=== PATIENT | male | born 1950 | race Caucasian/White ===

== ENCOUNTER 2017-07-02 21:03 | Emergency (ER) | payer MEDICARE, OTHER ==
[2017-07-02 21:13] VITALS: BP 139/80
[2017-07-02] MEDS ORDERED: Albuterol/Ipratropium NEB.SOL* Albuterol 2.5 MG/Ipratropium 0.5 MG 3 ML INH ONE (21:13)
--- NOTE | 2017-07-02 21:35 | UC ---
Respiratory Complaint HPI - HPI Summary HPI Summary: Uri sx began 5 days ago seen pcp yesterday tessalon and tamiflu rx, --is getting no relief- - History of Current Complaint Chief Complaint: UCRespiratory Stated Complaint: URI Time Seen by Provider: 07/02/17 21:08 Hx Obtained From: Patient Onset/Duration: Sudden Onset, Lasting Days - 5 Timing: Constant Severity Initially: Mild Severity Currently: Mild Pain Intensity: 0 Pain Scale Used: 0-10 Numeric Character: Cough: Nonproductive Aggravating Factors: Nothing Alleviating Factors: Nothing Associated Signs And Symptoms: Positive: URI - Allergies/Home Medications Allergies/Adverse Reactions: Allergies Allergy/AdvReac Type Severity Reaction Status Date / Time No Known Allergies Allergy Verified 07/02/17 21:14 Home Medications: Home Medications Dextromethorphan Polistirex [Delsym] 30 mg PO Q6HR 07/02/17 [History Confirmed 07/02/17] Guaifenesin/Dextromethorphan [Mucinex Dm ER 600-30 mg Tablet] 1 each PO Q12HR PRN 07/02/17 [History Confirmed 07/02/17] Rash Creams 1 07/02/17 [History] PMH/Surg Hx/FS Hx/Imm Hx Previously Healthy: Yes - Surgical History Surgical History: Yes Surgery Procedure, Year, and Place: appendectomy. tonsilectomy - Family History Known Family History: Positive: None - Social History Occupation: Retired Lives: With Family Alcohol Use: Occasionally Alcohol Amount: 1-2 a week Substance Use Type: None Smoking Status (MU): Never Smoked Tobacco Have You Smoked in the Last Year: No - Immunization History Most Recent Influenza Vaccination: jan 2015 Most Recent Tetanus Shot: unknown Review of Systems Constitutional: Chills, Fatigue Skin: Negative Eyes: Negative ENT: Negative Respiratory: Shortness Of Breath, Cough Cardiovascular: Negative Gastrointestinal: Negative Genitourinary: Negative Motor: Negative Neurovascular: Negative Musculoskeletal: Negative Neurological: Negative Psychological: Negative Is Patient Immunocompromised?: No All Other Systems Reviewed And Are Negative: Yes Physical Exam Triage Information Reviewed: Yes Appearance: No Pain Distress, Well-Nourished, Ill-Appearing - mild Vital Signs: Initial Vital Signs Temp 99.0 F 07/02/17 21:07 Pulse 72 07/02/17 21:07 Resp 20 07/02/17 21:07 BP 139/80 02/21/18 21:07 Pulse Ox 94 07/02/17 21:07 Vital Signs Reviewed: Yes Eye Exam: Normal Eyes: Positive: Conjunctiva Clear ENT Exam: Normal ENT: Positive: Normal ENT inspection, Hearing grossly normal, Pharynx normal, TMs normal, Uvula midline. Negative: Nasal congestion, Nasal drainage, Tonsillar swelling, Tonsillar exudate, Trismus, Muffled voice, Hoarse voice, Sinus tenderness Dental Exam: Normal Neck exam: Normal Neck: Positive: Supple, Nontender, No Lymphadenopathy Respiratory Exam: Normal Respiratory: Positive: Chest non-tender, No respiratory distress, No accessory muscle use, Wheezing Cardiovascular Exam: Normal Cardiovascular: Positive: RRR, No Murmur, Pulses Normal, Brisk Capillary Refill Musculoskeletal Exam: Normal Musculoskeletal: Positive: Strength Intact, ROM Intact, No Edema Neurological Exam: Normal Neurological: Positive: Alert, Muscle Tone Normal Psychological Exam: Normal Skin Exam: Normal UC Diagnostic Evaluation - Laboratory O2 Sat by Pulse Oximetry: 94 Respiratory Course/Dx - Course Course Of Treatment: robitussin and codiene, albuterol, prednisone, increase fluids, follow with Dr. Pardo - Differential Dx/Diagnosis Provider Diagnoses: Bronchospasm, acute cough Discharge - Discharge Plan Condition: Stable Disposition: HOME Prescriptions: guaiFENesin/CODIEN 100MG-10MG* [Robitussin AC 100Mg-10Mg*] 5 - 10 ml PO Q4H PRN #90 ml MDD 40ml PRN Reason: Cough predniSONE TAB* [Deltasone TAB*] 20 mg PO DAILY #9 tab Patient Education Materials: Bronchospasm (ED), Acute Cough (ED) Referrals: Jose Pardo MD [Primary Care Provider] - 2 Days
[2017-07-02] MEDS ORDERED: Albuterol HFA INHALER* 8 gm MDI INH ONE (21:38)
[2017-07-02] MEDS ORDERED: guaiFENesin/CODIEN 100MG-10MG* 5 ML UDC PO ONE (21:39)
== END 2017-07-02 22:04 | disposition home or self-care (01) ==
LOC: UCEAST 21:03
DX: J98.01 Acute bronchospasm (principal); R05 Cough
CPT/HCPCS: 99213; A9270-GY; G0463

== ENCOUNTER 2017-08-28 18:24 | Emergency (ER) | payer MEDICARE, OTHER ==
[2017-08-28 19:02] VITALS: BP 127/75
--- NOTE | 2017-08-28 19:19 | UC ---
Abdominal Pain Female HPI - HPI Summary HPI Summary: 66 yo male with RLQ abd pain since yesterday AM worse when seated better when supine or laying down no f/c good appetite today change in caliber of stool hx of surgery for perforated appendix about 50 yrs ago no f/c good appetite no n/v - History of Current Complaint Chief Complaint: UCAbdominalPain Stated Complaint: ABDOMINAL COMPLAINT Time Seen by Provider: 08/28/17 18:57 Hx Obtained From: Patient Onset/Duration: Gradual Onset, Lasting Days - 1 1/2 Severity Currently: Mild Pain Intensity: 4 - mpderate to severe at times Pain Scale Used: 0-10 Numeric Location: Discrete At: RUQ Radiates: Yes Character: Aching Aggravating Factor(s): Other: - position Alleviating Factor(s): Position Associated Signs and Symptoms: Positive: Other: - change in stool caliber Allergies/Adverse Reactions: Allergies Allergy/AdvReac Type Severity Reaction Status Date / Time No Known Allergies Allergy Verified 08/28/17 19:02 Home Medications: Home Medications NK [No Home Medications Reported] 08/28/17 [History Confirmed 08/28/17] PMH/Surg Hx/FS Hx/Imm Hx Previously Healthy: Yes - Surgical History Surgical History: Yes Surgery Procedure, Year, and Place: appendectomy. tonsilectomy - Family History Known Family History: Positive: Hypertension - Social History Alcohol Use: Occasionally Alcohol Amount: 1-2 a week Substance Use Type: None Smoking Status (MU): Never Smoked Tobacco Have You Smoked in the Last Year: No - Immunization History Most Recent Influenza Vaccination: jan 2015 Most Recent Tetanus Shot: unknown Review of Systems Constitutional: Negative Skin: Negative Eyes: Negative ENT: Negative Respiratory: Negative Cardiovascular: Negative Gastrointestinal: Abdominal Pain Genitourinary: Negative Motor: Negative Neurovascular: Negative Musculoskeletal: Negative Neurological: Negative Psychological: Negative Is Patient Immunocompromised?: No All Other Systems Reviewed And Are Negative: Yes Physical Exam Triage Information Reviewed: Yes Appearance: Well-Appearing, No Pain Distress, Well-Nourished Vital Signs: Initial Vital Signs Temp 99.1 F 08/28/17 18:57 Pulse 62 08/28/17 18:57 Resp 18 08/28/17 18:57 BP 127/75 08/28/17 18:57 Pulse Ox 99 08/28/17 18:57 Vital Signs Reviewed: Yes Eyes: Positive: Conjunctiva Clear ENT: Positive: Hearing grossly normal, Uvula midline. Negative: Nasal congestion, Nasal drainage Neck: Positive: Supple, Nontender, No Lymphadenopathy Respiratory: Positive: Lungs clear, Normal breath sounds, No respiratory distress Cardiovascular: Positive: RRR, No Murmur Abdomen Description: Negative: Nontender - suprapubic and LLQ tenderness Bowel Sounds: Positive: Present Musculoskeletal: Positive: ROM Intact, No Edema Neurological: Positive: Alert Psychological Exam: Normal Skin Exam: Normal Diagnostics - Laboratory Diagnostic Studies Completed/Ordered: UA trace RBCs Abd Pain Female Course/Dx - Course Course Of Treatment: I explained that with his prior hx of appy with perf requiring drains that he was at an increased risk of partial SBO. He also has had a change in bowel habits and suprabpubic and LLQ abd tenderness. He could have diverticulitis - Differential Dx/Diagnosis Provider Diagnoses: Abdominal pain of uncertain cause Discharge - Sign-Out/Discharge Documenting (check all that apply): Discharge - Discharge Plan Condition: Stable Disposition: HOME Referrals: Jose Pardo MD [Primary Care Provider] - Additional Instructions: I suggest you go to the ER for further evaluation of your abdominal pain don't eat enroute - Billing Disposition and Condition Condition: STABLE Disposition: HOME
== END 2017-08-28 19:53 | disposition home or self-care (01) ==
LOC: UCEAST 18:24
DX: R10.31 Right lower quadrant pain (principal)
CPT/HCPCS: 81003

== ENCOUNTER 2017-08-28 20:10 | Emergency (ER) | payer MEDICARE, OTHER ==
[2017-08-28] MEDS ORDERED: NS 0.9% 1000 ML* 1,000 ML IV ONE (21:10)
[2017-08-28 21:27] LABS: Hematocrit 40 % (42-52); Hemoglobin 13.6 g/dl (14.0-18.0); Mean Corpuscular HGB Conc 34 g/dl (31-36); Mean Corpuscular Hemoglobin 31 pg (27-31); Mean Corpuscular Volume 92 fL (80-94); Mean Platelet Volume 7.8 um3 (7.4-10.4); Platelet Count 320 10^3/ul (150-450); Red Blood Count 4.33 10^6/ul (4.0-5.4); Red Cell Distribution Width 13 % (10.5-15); White Blood Count 8.4 10^3/ul (3.5-10.8)
[2017-08-28 21:31] LABS: ABS Basophils 0.1 10^3/ul (0-0.2); ABS Eosinophils 0.2 10^3/ul (0-0.6); ABS Lymphocytes 1.8 10^3/ul (1.0-4.8); ABS Monocytes 0.7 10^3/ul (0-0.8); ABS Neutrophils 5.6 10^3/ul (1.5-7.7); ABS Nucleated RBC 0 10^3/ul; Eosinophil % 2.3 % (0-6); Nucleated Red Blood Cells % 0.1
[2017-08-28 21:50] LABS: Urine Appearance Clear; Urine Blood 1+ (Negative); Urine Color Yellow; Urine Ketones Negative (Negative); Urine Protein Negative (Negative); Urine Specific Gravity 1.008 (1.010-1.030); Urine Urobilinogen Negative (Negative)
[2017-08-28 22:02] LABS: EGFR Non-African American 95.3 (>60)
[2017-08-28] MEDS ORDERED: Iohexol 300* (CONTRAST) 10 ML SDV IV ONE (22:42)
--- NOTE | 2017-08-29 01:00 | ED ---
Jose Juan López Rebecca, scribed for Boo Saldana MD on 08/28/17 at 2111 . Abdominal Pain/Male - HPI Summary HPI Summary: Pt is a 66 y/o M referred from [facility] who presents to ED c/o RLQ abdominal pain. Sx began yesterday morning upon waking up and has been constant since onset, waxing and waning in intensity. On examination, pt reports pain 1/10 though on triage pain was ranked 5/10 and that the pain does not radiate. Described as "feeling like I need a BM," and is aggravated by standing and leaning forward while sitting, alleviated by sitting. Denies any other symptoms including N/V/D, fever, dysuria, and urinary frequency. PSHx appy. - History of Current Complaint Chief Complaint: EDAbdPain Stated Complaint: ABD PAIN Time Seen by Provider: 08/28/17 21:02 Hx Obtained From: Patient Onset/Duration: Lasting Days - Yesterday, Still Present Severity Initially: Moderate - 5/10 Severity Currently: Mild Pain Intensity: 1 Pain Scale Used: 0-10 Numeric Location: Discrete At: RLQ Radiates: No Character: Other: - "like I need a BM" Aggravating Factor(s): Other: - Standing and leaning forward while sitting Alleviating Factor(s): Position - Laying down Associated Signs And Symptoms: Positive: Negative. Negative: Fever, Nausea, Vomiting, Diarrhea - Allergies/Home Medications Allergies/Adverse Reactions: Allergies Allergy/AdvReac Type Severity Reaction Status Date / Time No Known Allergies Allergy Verified 08/28/17 20:24 PMH/Surg Hx/FS Hx/Imm Hx Endocrine/Hematology History: Denies: Hx Diabetes, Hx Thyroid Disease Cardiovascular History: Denies: Hx Hypertension Respiratory History: Denies: Hx Asthma, Hx Chronic Obstructive Pulmonary Disease (COPD) GI History: Denies: Hx Ulcer - Surgical History Surgery Procedure, Year, and Place: appendectomy. tonsilectomy Infectious Disease History: No Infectious Disease History: Denies: Hx Clostridium Difficile, Hx Hepatitis, Hx Human Immunodeficiency Virus (HIV), Hx of Known/Suspected MRSA, Hx Shingles, Hx Tuberculosis, Hx Known/ Suspected VRE, Hx Known/Suspected VRSA, History Other Infectious Disease, Traveled Outside the [place] in Last 30 Days - Family History Known Family History: Positive: Hypertension - Social History Alcohol Use: Occasionally Alcohol Amount: 1-2 a week Substance Use Type: Reports: None Hx Tobacco Use: No Smoking Status (MU): Never Smoked Tobacco Have You Smoked in the Last Year: No Review of Systems Negative: Fever Positive: Abdominal Pain. Negative: Vomiting, Diarrhea, Nausea Negative: dysuria, frequency All Other Systems Reviewed And Are Negative: Yes Physical Exam - Summary Physical Exam Summary: VITAL SIGNS: Reviewed. GENERAL: ~Patient is a well-developed and nourished male who is lying comfortable in the stretcher. Patient is not in any acute respiratory distress. HEAD AND FACE: No signs of trauma. No ecchymosis, hematomas or skull depressions. No sinus tenderness. EYES: PERRLA, EOMI x 2, No injected conjunctiva, no nystagmus. EARS: Hearing grossly intact. Ear canals and tympanic membranes are within normal limits. MOUTH: Oropharynx within normal limits. NECK: Supple, trachea is midline, no adenopathy, no JVD, no carotid bruit, no c- spine tenderness, neck with full ROM. CHEST: Symmetric, no tenderness at palpation LUNGS: Clear to auscultation bilaterally. No wheezing or crackles. CVS: Regular rate and rhythm, S1 and S2 present, no murmurs or gallops appreciated. ABDOMEN: Soft, mild RLQ tenderness. No signs of distention. No rebound no guarding, and no masses palpated. Bowel sounds are normal. EXTREMITIES: FROM in all major joints, no edema, no cyanosis or clubbing. NEURO: Alert and oriented x 3. No acute neurological deficits. Speech is normal and follows commands. SKIN: Dry and warm Triage Information Reviewed: Yes Vital Signs On Initial Exam: Initial Vitals Temp Pulse Resp BP Pulse Ox 98.3 F 60 16 128/78 99 08/28/17 20:15 08/28/17 20:15 08/28/17 20:15 08/28/17 20:15 08/28/17 20:15 Vital Signs Reviewed: Yes Diagnostics - Vital Signs Vital Signs Temp Pulse Resp BP Pulse Ox 08/28/17 20:15 98.3 F 60 16 128/78 99 - Laboratory Result Diagrams: 08/28/17 21:15 08/28/17 21:15 Lab Statement: Any lab studies that have been ordered have been reviewed, and results considered in the medical decision making process. - CT CT Abd/Pel CT Interpretation Completed By: Radiologist - No bowel obstruction, colitis, diverticulitis, free fluid, or free air. Appendix not seen. Unremarkable pancreas, kidneys, and gallbladder. Small hiatal hernia. ED physician reviewed this radiology report. Pending official report. Re-Evaluation - Re-Evaluation First Eval Re-Evaluation Time: 00:56 Change: Improved Comment: Discussed results. Abdominal Pain Fem Course/Dx - Course Assessment/Plan: Pt is a 66 y/o M referred from [facility] who presents to ED c/o constant RLQ abdominal pain since yesterday morning upon waking up, waning in intensity. On examination, pt reports pain 1/10 though on triage pain was ranked 5/10 and that the pain does not radiate. Described as "feeling like I need a BM," and is aggravated by standing and leaning forward while sitting, alleviated by sitting. Denies any other symptoms including N/V/D, fever, dysuria , and urinary frequency. PSHx appy. CT Abd/Pel reveals no acute findings. Bloodwork and UA were done. In the ED course, pt received fluids. He will be D/ C to home with Dx of abdominal pain. He understands and agrees. - Diagnoses Provider Diagnoses: Abdominal pain Discharge - Sign-Out/Discharge Documenting (check all that apply): Discharge - Discharge - Discharge Plan Condition: Stable Disposition: HOME Patient Education Materials: Acute Abdominal Pain (ED) Referrals: Jose Pardo MD [Primary Care Provider] - 3 Days Additional Instructions: Take Tylenol for the pain. RETURN TO EMERGENCY DEPARTMENT FOR ANY NEW OR WORSENING SYMPTOMS The documentation as recorded by the Jose Juan mayen Rebecca accurately reflects the service I personally performed and the decisions made by me, Boo Saldana MD.
[2017-08-29 01:17] VITALS: BP 134/78
--- NOTE | 2017-08-29 08:02 | RAD ---
Indication: Abdominal pain. Contrast: Administered 100.3 ml of OMNIPAQUE 300 mg/ml CT of the abdomen and pelvis was performed after oral and IV contrast administration. Coronal and sagittal reconstructed images were obtained. The lung bases demonstrate no pleural fluid, nodules or masses. Heart is of normal size without evidence of pericardial effusion. The liver is normal in size. There are no focal lesions or intrahepatic duct dilatation noted. The gallbladder demonstrates no calcified gallstones. No pericholecystic fluid or wall thickening is noted. The pancreas demonstrates no mass or pancreatic duct dilatation. The spleen is normal in size. No adrenal lesions are noted. The kidneys demonstrate symmetric nephrograms without evidence of focal lesions. No retroperitoneal lymphadenopathy is noted. Aorta and inferior vena cava are unremarkable. No dilated loops of bowel are noted. The colon is filled with stool. No dilated loops of small bowel are noted. The urinary bladder is unremarkable. No pelvic adenopathy is noted. The appendix is not visualized. No hernias are noted. IMPRESSION: No abnormal masses or fluid collections are identified. No hernias are noted.
== END 2017-08-29 01:23 | disposition home or self-care (01) ==
LOC: ED 20:10
DX: R10.31 Right lower quadrant pain (principal)
CPT/HCPCS: 36415; 74177; 80053; 81003; 81015; 82150; 83605; 83690; 83735; 85025; 85610; 85730; 86140; 96360; 99283; Q9967